=== PATIENT | female | born 1995 | race Caucasian/White ===

== ENCOUNTER 2025-02-03 10:21 | Day surgery (SDC) | payer OTHER ==
[2025-02-03] MEDS: Lactated Ringers 1,000 ML IV SCH (11:20)
[2025-02-03] MEDS: metroNIDAZOLE/Normal Saline 500 MG in Premix Bag 1 BAG IV ONE (11:27)
[2025-02-03] MEDS ORDERED: fentaNYL 100 MCG/2 ML SDV ONE (11:42)
[2025-02-03] MEDS ORDERED: Midazolam 1 MG/ML 2 ML SDV ONE (11:42)
[2025-02-03] MEDS ORDERED: Propofol 200 MG/20 ML SDV ONE ×3 (11:42→12:14)
[2025-02-03] MEDS: Lidocaine 1% with EPINEPHrine 1:100,000 50 ML MDV ONE (12:25)
== END 2025-02-03 13:40 | disposition home or self-care (01) ==
LOC: JP.SDS 10:21
PROVIDERS: ATTEND Surgery
DX: K64.8 Other hemorrhoids (principal); K64.4 Residual hemorrhoidal skin tags; F41.8 Other specified anxiety disorders; E66.01 Morbid (severe) obesity due to excess calories; Z68.41 Body mass index [BMI] 40.0-44.9, adult; Z79.899 Other long term (current) drug therapy
CPT/HCPCS: 00902; 46255; 81025; J0665; J0690; J1836; J2250; J2704; J3010; J7120